=== PATIENT | female | born 2000 | race Two or more races ===

== ENCOUNTER 2021-07-22 11:49 | Emergency (ER) | payer OTHER ==
[~2021-07-22] VITALS: Ht 172.7 cm; Wt 95.7 kg
[2021-07-22] MEDS ORDERED: PRENATABS RX T1 EACH (12:11)
== END 2021-07-22 16:07 | disposition home or self-care (01) ==
LOC: EMR PED 11:49 → ER 11:56
DX: O26.859 Spotting complicating pregnancy, unspecified trimester (principal); Z3A.12 12 weeks gestation of pregnancy

== ENCOUNTER 2021-09-21 13:32 | Outpatient (CLI) | payer OTHER ==
[~2021-09-21 13:32] MED LIST: PRENATABS RX T1 EACH
== END 2021-09-21 14:37 | disposition home or self-care (01) ==
LOC: PRENATAL 13:32
PROVIDERS: ATTEND Obstetrics & Gynecology Maternal & Fetal Medicine
DX: O35.0XX1 Maternal care for (suspected) central nervous system malformation in fetus, fetus 1 (principal); O35.3XX1 Maternal care for (suspected) damage to fetus from viral disease in mother, fetus 1; O98.512 Other viral diseases complicating pregnancy, second trimester; O99.342 Other mental disorders complicating pregnancy, second trimester; Z36.89 Encounter for other specified antenatal screening; Z3A.20 20 weeks gestation of pregnancy

== ENCOUNTER 2021-11-18 11:22 | Outpatient (CLI) | payer OTHER ==
[2021-11-18] MEDS ORDERED: MAALOX MAXIMUM355 ML (12:54)
== END 2021-11-18 15:55 | disposition home or self-care (01) ==
LOC: OBS/DEL 11:22
PROVIDERS: ATTEND Obstetrics & Gynecology
DX: O26.843 Uterine size-date discrepancy, third trimester (principal); O60.03 Preterm labor without delivery, third trimester; O26.853 Spotting complicating pregnancy, third trimester; Z3A.29 29 weeks gestation of pregnancy

== ENCOUNTER 2022-01-26 14:27 | Outpatient (CLI) | payer OTHER ==
[~2022-01-26 14:27] MED LIST changes: +MAALOX MAXIMUM355 ML
== END 2022-01-26 14:57 | disposition home or self-care (01) ==
LOC: NST 14:27
PROVIDERS: ATTEND Obstetrics & Gynecology
DX: Z34.83 Encounter for supervision of other normal pregnancy, third trimester (principal)

== ENCOUNTER 2022-01-28 06:29 | Inpatient (IN) | payer OTHER ==
[~2022-01-28] VITALS: Ht 172.7 cm; Wt 108.9 kg
== END 2022-01-30 13:35 | disposition home or self-care (01) | DRG 807 ==
LOC: LDR 06:29 → SURG-SUITE 14:06
PROVIDERS: ADMIT Obstetrics & Gynecology; ATTEND Obstetrics & Gynecology
PROC: 10E0XZZ Delivery of Products of Conception, External Approach (ICD-10-PCS; principal; 2022-01-28)
PROC: 0UQMXZZ Repair Vulva, External Approach (ICD-10-PCS; 2022-01-28)
PROC: 4A1HXCZ Monitoring of Products of Conception, Cardiac Rate, External Approach (ICD-10-PCS; 2022-01-28)
PROC: 0W8NXZZ Division of Female Perineum, External Approach (ICD-10-PCS; 2022-01-28)
PROC: 3E033VJ Introduction of Other Hormone into Peripheral Vein, Percutaneous Approach (ICD-10-PCS; 2022-01-28)
DX: O71.82 Other specified trauma to perineum and vulva (principal); Z37.0 Single live birth; Z3A.39 39 weeks gestation of pregnancy; Z20.822 Contact with and (suspected) exposure to COVID-19

== ENCOUNTER 2022-03-14 20:35 | Emergency (ER) | payer OTHER ==
[~2022-03-14] VITALS: Ht 50.8 cm; Wt 5.3 kg
== END 2022-03-14 22:35 | disposition home or self-care (01) ==
LOC: EMR PED 20:35
DX: R10.83 Colic (principal); K90.49 Malabsorption due to intolerance, not elsewhere classified